=== PATIENT | female | born 1945 | race Caucasian/White ===

== ENCOUNTER 2020-12-14 18:04 | Inpatient (IN) ==
[2020-12-14] MEDS ORDERED: fentaNYL 100 MCG/2 ML VIAL IV ONE (18:29)
--- NOTE | 2020-12-14 18:45 | Emergency Department Note ---
Lower Extremity Injury HPI General Chief Complaint: Extremity Injury, Lower Stated Complaint: Fell @ home & broke right hip Time Seen by Provider: 12/14/20 18:21 Source: EMS and RN notes reviewed Mode of arrival: EMS History of Present Illness HPI Narrative: This is a 75-year-old female resident of [place] who slipped on a concrete step earlier today landing on her left hip and left elbow. She did not hit her head. She was seen in the ER at [facility] and diagnosed with a left nondisplaced intertrochanteric hip fracture. She has been transferred here under the care of Dr. Salinas for surgical intervention. Patient is on Eliquis for chronic atrial fibrillation, last dose was this morning at 4 AM. She has a history of HFpEF 60% with moderate to severe mitral insufficiency status post MitraClip [address] Mejias at [facility]. The patient appears euvolemic today and reports no edema or shortness of breath. Laboratory data from her work-up in [place] is unremarkable except for a platelet count of 123,000. Related Data Home Medications Medication Instructions Recorded Confirmed alendronate 70 mg PO WEEKLY 12/14/20 12/14/20 apixaban [Eliquis] 5 mg PO BID 12/14/20 12/14/20 atorvastatin 20 mg PO QHS 12/14/20 12/14/20 calcium carbonate-vitamin D3 1 tab PO DAILY 12/14/20 12/14/20 diltiazem HCl PO 12/14/20 12/14/20 metoprolol tartrate PO 12/14/20 12/14/20 Allergies Allergy/AdvReac Type Severity Reaction Status Date / Time No Known Drug Allergies Allergy Unverified 12/14/20 18:20 Review of Systems ROS ROS Narrative: Narrative: All systems ED: reviewed and negative except as stated. PFSH Narrative Patient History Narrative: Narrative: Medical/Surgical/Family History All Active Problems Intertrochanteric fracture of left hip (Acute) Social History Smoking Status: Former smoker Exam Narrative Narrative: General: AOx3, NAD, nontoxic appearing. Pleasant and conversant. HEENT: PERRLA, EOMI, normocephalic. Moist mucous membranes. Normal facies and normal dentition. Respiratory: Lungs clear to auscultation bilaterally. No respiratory distress. Unlabored breathing. Heart: Irregular rate and rhythm, no murmurs/clicks/rubs. Abdomen: Non-tender, Non distended, normal bowel tones. No organomegaly. Extremities: Warm and well perfused. No edema. DP 2+ bilaterally. No venous stasis. Left dorsal surface of the elbow with ecchymosis and small hematoma. No osseous deformities. Neuro: No focal deficits. Cranial nerves II-XII normal. Skin: Warm dry, no rashes or lesions, no cyanosis. Psych: Normal mood and affect Heme/Lymph: No abnormal bruising Course Vital Signs Vital signs: Vital Signs Temperature 97.6 F 12/14/20 18:07 Pulse Rate 80 12/14/20 18:07 Respiratory Rate 18 12/14/20 18:07 Blood Pressure 152/96 12/14/20 18:07 Pulse Oximetry (%) 96 12/14/20 18:07 Temperature 97.6 F 12/14/20 18:07 Pulse Rate 87 12/14/20 18:47 Respiratory Rate 12 12/14/20 18:31 Blood Pressure 138/73 12/14/20 18:47 Pulse Oximetry (%) 95 12/14/20 18:47 [facility] MDM Narrative Medical decision making narrative: Left nondisplaced intertrochanteric hip fracture Atrial fibrillation on chronic Eliquis Status post mitral clip for severe mitral regurgitation with [facility] Thrombocytopenia Dr. Salinas has accepted the patient and will plan on surgical repair tomorrow given the fact that she is on Eliquis. Currently she is hemodynamically stable. Given her other medical comorbidities, the hospitalist has been consulted. She will be admitted to the MedSurg unit. 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) Follow up with: Luis Eduardo Sahni DO [Primary Care Provider] - Prescriptions: No Action calcium carbonate-vitamin D3 1 tab PO DAILY RF: 0 diltiazem HCl 240 mg capsule,extended release 24hr 240 mg PO DAILY RF: 0 Eliquis 5 mg tablet 5 mg PO BID RF: 0 atorvastatin 20 mg tablet 20 mg PO QHS RF: 0 alendronate 70 mg tablet 70 mg PO WEEKLY RF: 0 metoprolol tartrate 50 mg tablet 50 mg PO BID RF: 0
--- NOTE | 2020-12-14 19:13 | Internal Med History&Physical ---
HPI History of Present Illness Patient information: Note initiated : 12/14/20 at 7:10 pm Service Date, if different from initiated Date: [] Patient: Uday Caballero a 75 y/o F admitted on for Fell @ home & broke right hip. Chief Complaint: [] History of present illness: Ms. Caballero is a 75 year old F Presents to the hospital from [facility] after a fall on her left side resulting in a hip fracture. She tripped on a step. Did not hit her head. No chest pain shortness of breath. She does have a history of atrial fibrillation and is on diltiazem and apixaban and a beta-chi. She did have a mitral valve procedure for mitral insufficiency. Dr. Salinas was contacted for orthopedic surgery. Review of Systems: Pertinent positives as above. Denies headache/fever/chills/nausea/vomiting/chest or abdominal pain/cough/dyspnea/diarrhea. Remaining 10 point review of system reviewed negative. PFSH PFSH All Active Problems Intertrochanteric fracture of left hip (Acute) MEDS/ALLERGIES Home Medications and Allergies Home Medications Medication Instructions Recorded Confirmed Type alendronate 70 mg PO WEEKLY 12/14/20 12/14/20 History apixaban [Eliquis] 5 mg PO BID 12/14/20 12/14/20 History atorvastatin 20 mg PO QHS 12/14/20 12/14/20 History calcium carbonate-vitamin D3 1 tab PO DAILY 12/14/20 12/14/20 History diltiazem HCl 240 mg PO DAILY 12/14/20 12/14/20 History metoprolol tartrate 50 mg PO BID 12/14/20 12/14/20 History Allergies Allergy/AdvReac Type Severity Reaction Status Date / Time No Known Drug Allergies Allergy Unverified 12/14/20 18:20 EXAM Constitutional Vitals: Temp Pulse Resp BP Pulse Ox 97.6 F 87 12 138/73 95 12/14/20 18:07 12/14/20 18:47 12/14/20 18:31 12/14/20 18:47 12/14/20 18:47 Exam: General: Alert, Awake, No acute Distress Eyes/N/T: EOMI, PERRL, Head/Neck: neck supple, normocephalic atraumatic CV: irreg irreg, No murmurs, normal s1/s2 Pulm: Clear b/l, no wheezing/rhonchi/rales Abd: soft, nontender, +BS x4 Ext: no clubbing/cyanosis/edema, left extremity shortened externally rotated. Neuro: Alert, no focal deficits, moves all extremities, CN 2-12 grossly intact, sensations intact b/l upper/lower Skin: warm/dry A/P Narrative A/P Narrative: A: *Left hip fracture: *A. fib: On diltiazem/metoprolol/apixaban *?h/o diastolic CHF, EF 60% *pending lab work P: -Dr. Salinas orthopedic surgery -Continue CCB/BB -Hold Eliquis for surgery and restart after - -PT/OT -ppx: SCDs and postop with Eliquis Full code Time Spent With Patient Time: Total time spent is greater than 50% in coordination of care (as documented) at patient's floor/unit and/or counseling patient:
--- NOTE | 2020-12-14 20:06 | History and Physical Report ---
DATE OF ADMISSION: 12/14/2020 IDENTIFICATION: Ms. Caballero is a 75-year-old female. CHIEF COMPLAINT: Left intertrochanteric hip fracture. HISTORY: Ms. Caballero was in [place]. She was outside, sustained a nonsyncopal fall. She had immediate hip pain. Was unable to bear weight. She was seen in Emergency Room at [facility] and radiographs had demonstrated a fracture of the left hip intertrochanteric region. She has been transferred for further evaluation and management. PAST MEDICAL HISTORY: Significant for atrial fibrillation, history of mitral valve insufficiency with a recent valvular procedure just several weeks ago, history of hypertension, she is anticoagulated, history of past smoker. REVIEW OF SYSTEMS: She has really been relatively healthy recently with negative 10-point review of systems. MEDICATIONS: 1. Fosamax. 2. Eliquis. 3. Atorvastatin. 4. Diltiazem. 5. Metoprolol. ALLERGIES: NONE. PHYSICAL EXAMINATION: GENERAL: She is awake and alert. She is generally resting comfortably. HEAD: Normocephalic, atraumatic. EYES: PERRLA. Conjunctivae clear. ENT: Within normal limits. NECK: Supple without pain on range of motion. HEART: Irregularly irregular. LUNGS: Clear. ABDOMEN: Benign. EXTREMITIES: Her left lower extremity is carefully positioned. There is pain with any range of motion. She does not have significant shortening or deformity. She is without neurovascular deficit. RADIOGRAPHS: Her radiographs demonstrate a fracture of the intertrochanteric region of left hip. IMPRESSION: Left hip fracture. We have discussed treatment options. We plan to proceed with a reduction and internal fixation because she is on Eliquis, I would like to delay this until tomorrow. The procedure, the surgical risks, complications, limitations have been discussed with the patient. She understands these well and wish to proceed. GDD:cori Job ID: [id number] Doc ID: [id number] Ken Salinas MD
[2020-12-14] MEDS ORDERED: METHOCARBAMOL 750 MG TABLET PO PRN (20:30)
[2020-12-14] MEDS ORDERED: morphine 4 MG/ML VIAL IV PRN (20:47)
[2020-12-14] MEDS ORDERED: MAGNESIUM SULFATE 2 GM/50 ML BAG IV PRN (20:47)
[2020-12-14] MEDS ORDERED: METOPROLOL TARTRATE 5 MG/5 ML VIAL IV PRN (20:47)
[2020-12-14] MEDS ORDERED: POTASSIUM CHLORIDE 20 MEQ TABLET PO PRN ×2 (20:47)
[2020-12-14] MEDS ORDERED: HYDROcodone/APAP 5/325MG TABLET PO PRN (20:47)
[2020-12-14] MEDS ORDERED: IPRATROPIUM/ALBUTEROL 3 ML AMPUL.NEB NEB PRN (20:47)
[2020-12-14] MEDS ORDERED: POTASSIUM CHLORIDE 40 MEQ in DEXTROSE 5% IN WATER 500 ML IV PRN (20:47)
[2020-12-14] MEDS ORDERED: POLYETHYLENE GLYCOL 3350 17 GM PACKET PO PRN (20:47)
[2020-12-14] MEDS ORDERED: SENNOSIDES 1 TABLET PO PRN (20:47)
[2020-12-14] MEDS ORDERED: ONDANSETRON 4 MG/2 ML VIAL IV PRN (20:47)
[2020-12-14] MEDS ORDERED: ACETAMINOPHEN 325 MG TABLET PO PRN (20:47)
[2020-12-14] MEDS: 0.9 % SODIUM CHLORIDE 10 ML SYRINGE IV SCH (21:13)
[2020-12-14] MEDS: 0.9 % SODIUM CHLORIDE 1,000 ML IV SCH (21:13)
[2020-12-14] MEDS: METOPROLOL TARTRATE 50 MG TABLET PO SCH (21:13)
[2020-12-14] MEDS: DOCUSATE SODIUM 100 MG CAPSULE PO SCH (21:13)
[2020-12-14] MEDS: ATORVASTATIN 20 MG TABLET PO SCH (21:13)
[2020-12-14 23:03] LABS: Appearance,Urine CLEAR (Clear); Bacteria,Urine MANY /hpf (0); Bilirubin,Urine Negative (Negative); Color,Urine STRAW; Culture Indicated,Urine Yes; Glucose,Urine (UA) Negative (Negative); Ketones,Urine 20 mg/dL (Negative); Leukocyte Esterase,Urine Negative /ug (Negative); Nitrate,Urine Negative (Negative); Protein,Urine Negative (Negative); Urine Blood 0.03 mg/dL (Negative); Urine RBC 6 /hpf (0-3); Urine Squamous Epithelial Cell 0 /hpf (0-4); Urine WBC 2 /hpf (0-4); Urobilinogen,Urine Negative
[2020-12-15] MEDS ORDERED: MAGNESIUM SULFATE 8.12 MEQ in DEXTROSE 5% IN WATER 50 ML IV ONE (00:14)
[2020-12-15] MEDS: 0.9 % SODIUM CHLORIDE 1,000 ML IV SCH (00:24)
[2020-12-15] MEDS: 0.9 % SODIUM CHLORIDE 10 ML SYRINGE IV SCH ×5 (06:12→21:18)
[2020-12-15 06:28] LABS: Basophils # (Auto) 0.06 K/mcL (0.00-0.20); Basophils % (Auto) 1.1 % (0.0-2.0); Eosinophils # (Auto) 0.05 K/mcL (0.00-0.70); Eosinophils % (Auto) 0.9 % (0.0-7.0); Hematocrit 33.6 % (36.0-48.0); Hemoglobin 10.8 g/dL (12.0-15.0); Lymphocytes # (Auto) 0.73 K/mcL (1.50-4.80); Lymphocytes % (Auto) 13.2 % (15.0-49.0); Mean Cell Volume 88.9 fL (80.0-100.0); Mean Corpuscular HGB Conc 32.1 g/dL (31.0-36.0); Mean Platelet Volume 11.1 fL (7.4-10.4); Monocytes # (Auto) 0.57 K/mcL (0.10-0.90); Monocytes % (Auto) 10.3 % (1.0-12.0); Neutrophils % (Auto) 74.5 % (38.0-78.0); Platelet Count 123 K/mcL (140-440); RBC 3.78 M/mcL (4.00-5.20); Red Cell Distribution Width 14.3 % (11.5-14.5); WBC 5.5 K/mcL (4.5-11.0)
[2020-12-15 06:47] LABS: ALT/SGPT 31 U/L (<40); AST/SGOT 27 U/L (<32); Albumin 3.7 gm/dL (3.2-5.2); Albumin/Globulin Ratio 1.4 (1.0-2.3); Alkaline Phosphatase 117 U/L (39-117); Bilirubin,Direct 0.4 mg/dL (<0.3); Bilirubin,Total 1.2 mg/dL (0.1-1.0); Blood Urea Nitrogen 13 mg/dL (8-23); Calcium 8.2 mg/dL (8.6-10.4); Carbon Dioxide 21 mmol/L (22-30); Chloride 101 mmol/L (96-108); Globulin 2.6 gm/dL (2.2-3.7); Glomerular Filtration Rate 93; Glucose 96 mg/dL (70-105); Lactate Dehydrogenase 304 U/L (135-225); Phosphorous 2.1 mg/dL (2.5-4.5); Triglycerides 71 mg/dL (<150); Uric Acid 5.5 mg/dL (2.5-8.0)
[2020-12-15 06:50] LABS: INR 1.3 (0.9-1.1); Prothrombin Time 16.4 sec (11.9-14.5)
[2020-12-15] MEDS: DILTIAZEM 240 MG CAP.XL.24H PO SCH ×2 (06:52→09:32)
[2020-12-15] MEDS ORDERED: LABETALOL 5 MG/ML ML IV PRN (07:47)
--- NOTE | 2020-12-15 07:49 | Internal Med Progress Note ---
SUBJECTIVE Subjective Patient information: Note initiated : 12/15/20 at 7:46 am Service Date, if different from initiated Date: [] Patient: Uday Caballero a 75 y/o F admitted on 12/14/20 for Fell @ home & broke right hip. Chief Complaint: [] Interval history: History of present illness: Ms. Caballero is a 75 year old F Presents to the hospital from [facility] after a fall on her left side resulting in a hip fracture. She tripped on a step. Did not hit her head. No chest pain shortness of breath. She does have a history of atrial fibrillation and is on diltiazem and apixaban and a beta-chi. She did have a mitral valve procedure for mitral insufficiency. Dr. Salinas was contacted for orthopedic surgery. 12/15 No overnight event or new complaints. Awaiting surgery. Patient states she is has a history of anemia and thrombocytopenia. Review of Systems: denies headache/fever/chills/nausea/vomiting/chest or abdominal pain/cough/dyspn ea/diarrhea. Otherwise see above. Constitutional Vitals: Vital Signs Temp Pulse Resp BP Pulse Ox 98.7 F 90 18 165/100 95 12/15/20 03:41 12/15/20 03:41 12/15/20 03:41 12/15/20 03:41 12/15/20 03:41 Period Temp Pulse Resp BP Sys/Winters Pulse Ox Last 24 Hr 97.6 F-98.7 F 64-95 12-22 138-171/73-102 92-97 Intake and Output 12/14/20 12/15/20 12/15/20 21:59 05:59 13:59 Intake Total 150 Output Total 1550 Balance -1400 Weight 52.707 kg 52.707 kg Intake & Output: Intake & Output 12/14/20 12/15/20 12/15/20 21:59 05:59 13:59 Intake Total 150 Output Total 1550 Balance -1400 Weight 52.707 kg 52.707 kg Intake: Oral 150 Output: Urine Catheter Amount 1550 Other: Urine Appearance Clear Cloudy Uretheral (Lance) Clear Urine Color Bright Yellow Bright Yellow Uretheral (Lance) Bright Yellow Urine Odor Normal Strong Uretheral (Lance) Normal Exam: General: Alert, Awake, No acute Distress Eyes/N/T: EOMI, Head/Neck: neck supple, CV: irreg irreg, No murmurs, Pulm: Clear b/l, no wheezing/rhonchi/rales Abd: soft, nontender, +BS x4 Ext: no clubbing/cyanosis/edema, left extremity shortened externally rotated. Neuro: Alert, no focal deficits, moves all extremities, Skin: warm/dry OBJ DATA Labs CBC & Chem 7: 12/15/20 05:30 12/15/20 05:29 Labs: Abnormal Lab Results 12/15/20 12/15/20 12/15/20 05:30 05:29 05:29 RBC 3.78 L Hgb 10.8 L Hct 33.6 L Plt Count 123 L MPV 11.1 H Lymph % (Auto) 13.2 L Lymph # (Auto) 0.73 L PT 16.4 H INR 1.3 H Carbon Dioxide 21 L Creatinine 0.5 L Calcium 8.2 L Phosphorus 2.1 L Total Bilirubin 1.2 H Direct Bilirubin 0.4 H GGT 98 H Lactate Dehydrogenase 304 H Urine Ketones Urine RBC Urine Bacteria 12/14/20 21:58 RBC Hgb Hct Plt Count MPV Lymph % (Auto) Lymph # (Auto) PT INR Carbon Dioxide Creatinine Calcium Phosphorus Total Bilirubin Direct Bilirubin GGT Lactate Dehydrogenase Urine Ketones 20 A Urine RBC 6 H Urine Bacteria Many A Meds: Medications Acetaminophen (Acetaminophen 325 Mg Tablet) 650 mg PO Q6HP PRN PRN Reason: PAIN/FEVER > 101 Last Admin: 12/15/20 07:15 Dose: 650 mg Documented by: Hydrocodone Bitart/Acetaminophen (Hydrocodone/Apap 7.5/325mg Tablet) 1 - 2 tab PO Q4-6HP PRN; Protocol PRN Reason: Per Pain Protocol Albuterol/Ipratropium (Ipratropium/Albuterol 3 Ml Ampul.Neb) 3 ml NEB Q4HP PRN PRN Reason: Shortness Of Breath Alendronate Sodium (Alendronate Sodium 70 Mg Tablet) 70 mg PO Weiner@0730 [facility] Atorvastatin Calcium (Atorvastatin 20 Mg Tablet) 20 mg PO QHS [facility] Last Admin: 12/14/20 21:13 Dose: 20 mg Documented by: Diltiazem HCl (Diltiazem 240 Mg Cap.Xl.24h) 240 mg PO DAILY [facility] Last Admin: 12/15/20 06:52 Dose: 240 mg Documented by: Docusate Sodium (Docusate Sodium 100 Mg Capsule) 100 mg PO BID [facility] Last Admin: 12/14/20 21:13 Dose: 100 mg Documented by: Potassium Chloride 40 meq/ (Dextrose) 520 mls @ 130 mls/hr IV UD PRN PRN Reason: Potassium < 3 Magnesium Sulfate (Magnesium Sulfate) 2 gm in 50 mls @ 50 mls/hr IV UD PRN PRN Reason: Magnesium </= 1.6 Sodium Chloride (Sodium Chloride 0.9%) 1,000 mls @ 75 mls/hr IV .[id number] [facility] Stop: 12/15/20 13:14 Last Admin: 12/15/20 00:24 Dose: Not Given Documented by: Methocarbamol (Methocarbamol 750 Mg Tablet) 750 mg PO Q6HP PRN PRN Reason: pain/spasm Metoprolol Tartrate (Metoprolol Tartrate 50 Mg Tablet) 50 mg PO BID [facility] Last Admin: 12/14/20 21:13 Dose: 50 mg Documented by: Metoprolol Tartrate (Metoprolol Tartrate 5 Mg/5 Ml Vial) 5 mg IV Q2HP PRN PRN Reason: Tachyarrhythmias HR>110 Morphine Sulfate (Morphine 4 Mg/Ml Vial) 0 mg IV Q3HP PRN PRN Reason: Pain Ondansetron HCl (Ondansetron 4 Mg/2 Ml Vial) 4 mg IV Q4HP PRN PRN Reason: Nausea And Vomiting Polyethylene Glycol (Polyethylene Glycol 3350 17 Gm Packet) 17 gm PO DAILYP PRN PRN Reason: Constipation Potassium Chloride (Potassium Chloride 20 Meq Tablet) 40 meq PO UD PRN PRN Reason: Potssium is 3-3.5 Potassium Chloride (Potassium Chloride 20 Meq Tablet) 40 meq PO UD PRN PRN Reason: Potassium < 3 Scopolamine (Scopolamine 1 Patch Patch) 1 patch TOPICAL PREOP PRN PRN Reason: Nausea And Vomiting Stop: 12/15/20 19:00 Senna (Sennosides 1 Tablet) 2 tab PO DAILYP PRN PRN Reason: Constipation Sodium Chloride (0.9 % Sodium Chloride 10 Ml Syringe) 10 ml IV Q8 [facility] Last Admin: 12/15/20 06:12 Dose: Not Given Documented by: A/P Narrative A/P Narrative: A: *Left hip fracture: *A. fib: On diltiazem/metoprolol/apixaban *?h/o diastolic CHF, EF 60% *Anemia, chronic: *Thrombocytopenia, chronic: *Hypophos: *Daily beer x4 P: -Dr. Salinas orthopedic surgery -Continue CCB/BB -Hold Eliquis for surgery and restart after -yaw JAIMES with dinner -PT/OT -ppx: SCDs and postop with Eliquis Full code Time Spent With Patient Time: Total time spent is greater than 50% in coordination of care (as documented) at patient's floor/unit and/or counseling patient: QUALITY Stroke Symptom Onset Unknown: No VTE Deep Vein Thrombosis/Pulmonary Embolism Present on Admission: No
[2020-12-15] MEDS ORDERED: chlordiazePOXIDE 25 MG CAPSULE PO PRN (07:55)
[2020-12-15] MEDS ORDERED: cloNIDine HCL 0.1 MG TABLET PO PRN (07:55)
[2020-12-15] MEDS ORDERED: LORazepam 2 MG/ML VIAL IV PRN (07:55)
[2020-12-15] MEDS ORDERED: POTASSIUM PHOSPHATE 40 MEQ in DEXTROSE 5% IN WATER 500 ML IV ONE (08:00)
[2020-12-15] MEDS: THIAMINE 100 MG in 0.9 % SODIUM CHLORIDE 50 ML IV SCH (08:21)
[2020-12-15] MEDS: DOCUSATE SODIUM 100 MG CAPSULE PO SCH ×2 (09:32→21:02)
[2020-12-15] MEDS: METOPROLOL TARTRATE 50 MG TABLET PO SCH ×2 (10:36→21:02)
[2020-12-15] MEDS: FOLIC ACID 1 MG TABLET PO SCH (10:36)
[2020-12-15] MEDS ORDERED: SCOPOLAMINE 1 PATCH PATCH TOPICAL PRN (13:00)
[2020-12-15] MEDS ORDERED: 0.9 % SODIUM CHLORIDE 250 ML IV SCH (14:00)
[2020-12-15] MEDS ORDERED: ceFAZolin 2 GM in DEXTROSE 5% IN WATER 50 ML IV SCH (15:45)
[2020-12-15] MEDS ORDERED: LIDOCAINE HCL/PF 100 MG/5 ML SYRINGE IV ONE (15:51)
[2020-12-15] MEDS ORDERED: MAGNESIUM SULFATE 2 GM/50 ML BAG IV ONE (15:51)
[2020-12-15] MEDS ORDERED: GLYCOPYRROLATE 0.2 MG/ML VIAL IV ONE (15:51)
[2020-12-15] MEDS ORDERED: ESMOLOL 100 MG/10 ML VIAL IV ONE (15:51)
[2020-12-15] MEDS ORDERED: DEXAMETHASONE 10 MG/ML VIAL ONE (15:51)
[2020-12-15] MEDS ORDERED: PROPOFOL 200 MG/20 ML VIAL IV ONE (15:51)
[2020-12-15] MEDS ORDERED: METOPROLOL TARTRATE 5 MG/5 ML VIAL IV ONE (15:51)
[2020-12-15] MEDS ORDERED: TRANEXAMIC ACID 1,000 MG/10 ML VIAL IV ONE (15:51)
[2020-12-15] MEDS ORDERED: fentaNYL 100 MCG/2 ML VIAL IV ONE (15:51)
[2020-12-15] MEDS ORDERED: ONDANSETRON 4 MG/2 ML VIAL ONE (15:51)
[2020-12-15] MEDS ORDERED: PHENYLephrine 1 MG/10 ML SYRINGE (ANEST) ONE (15:51)
[2020-12-15] MEDS ORDERED: KETAMINE 50 MG/ML Syringe (ANEST) ONE (15:51)
[2020-12-15] MEDS ORDERED: ATROPINE SULFATE 0.4 MG/ML VIAL IV PRN (16:36)
[2020-12-15] MEDS ORDERED: fentaNYL 100 MCG/2 ML VIAL IV PRN (16:36)
[2020-12-15] MEDS ORDERED: HYDROmorphone 0.5 MG/0.5 ML SYRINGE IV PRN (16:36)
[2020-12-15] MEDS ORDERED: METOPROLOL TARTRATE 5 MG/5 ML VIAL IV PRN (16:36)
[2020-12-15] MEDS ORDERED: IPRATROPIUM/ALBUTEROL 3 ML AMPUL.NEB NEB PRN (16:36)
[2020-12-15] MEDS ORDERED: ACETAMINOPHEN 1,000 MG/100 ML BAG IV ONE (16:36)
[2020-12-15] MEDS ORDERED: METHOCARBAMOL 1,000 MG/10 ML VIAL IV PRN (16:36)
[2020-12-15] MEDS ORDERED: MEPERIDINE 25 MG/ML VIAL IV PRN (16:36)
[2020-12-15] MEDS ORDERED: PROMETHAZINE 25 MG/ML VIAL IV PRN (16:36)
[2020-12-15] MEDS ORDERED: ONDANSETRON 4 MG/2 ML VIAL IV PRN (16:36)
[2020-12-15] MEDS ORDERED: FLUMAZENIL 0.1 MG/ML ML IV PRN (16:36)
[2020-12-15] MEDS ORDERED: NALOXONE HCL 0.4 MG/ML VIAL IV PRN (16:36)
[2020-12-15] MEDS ORDERED: ePHEDrine 50 MG/ML AMPUL IV PRN (16:36)
[2020-12-15] MEDS ORDERED: diphenhydrAMINE 50 MG/ML VIAL IV PRN (16:36)
--- NOTE | 2020-12-15 16:41 | Brief Operative Note ---
Brief Operative Note Date of procedure: 12/15/20 Pre-op diagnosis: Left hip fracture Post-op diagnosis: same Procedure: imhs Grafts/Implants: Yes Anesthesia: GETA Complications: none Surgeon: Ken Salinas Ophthalmic Technician Apprentice: Sofia Concepcion Estimated blood loss (cc): 100 Specimens Removed/Pathology: none sent Condition: stable Disposition: PACU
[2020-12-15] MEDS ORDERED: LACTATED RINGERS 1,000 ML IV SCH (16:45)
--- NOTE | 2020-12-15 17:39 | XRay Report ---
INDICATION: orif left hip with gamma nail TECHNIQUE: Intraoperative fluoroscopy and spot films utilized. Open reduction and internal fixation of left hip fracture with gamma nail configuration. 0.3 minutes fluoroscopy and 2.82 mCi exposure utilized. IMPRESSION: Intraoperative fluoroscopy and spot films Interpreted and Authenticated by: Virgil Hardin 12/15/20
[2020-12-15] MEDS: HYDROCODONE/APAP 7.5/325MG TABLET PO PRN (18:58)
[2020-12-15] MEDS: ATORVASTATIN 20 MG TABLET PO SCH (21:01)
[2020-12-15] MEDS: ceFAZolin 1 GM VIAL IV SCH (21:01)
[2020-12-16] MEDS: ceFAZolin 1 GM VIAL IV SCH ×3 (05:24→22:02)
[2020-12-16] MEDS: 0.9 % SODIUM CHLORIDE 10 ML SYRINGE IV SCH ×6 (05:55→23:40)
--- NOTE | 2020-12-16 06:05 | Orthopedic Progress Note ---
SUBJECTIVE Subjective Patient information: Note initiated : 12/16/20 at 6:04 am Service Date, if different from initiated Date: [] Patient: Uday Caballero 75 y/o F admitted on 12/14/20 for Fell @ home & broke right hip. Chief Complaint: [no new ortho issues ] Constitutional Vitals: Vital Signs Temp Pulse Resp BP Pulse Ox 98.4 F 80 16 123/82 95 12/16/20 05:26 12/16/20 05:26 12/16/20 05:26 12/16/20 05:26 12/16/20 05:26 Period Temp Pulse Resp BP Sys/Winters Pulse Ox Last 24 Hr 98.1 F-98.6 F 56-130 13-22 88-165/61-104 87-100 Intake and Output 12/15/20 12/16/20 12/16/20 21:59 05:59 13:59 Intake Total 1250 500 Output Total 1300 450 Balance -50 50 Weight 116 lb 3.2 oz Intake & Output: Intake & Output 12/15/20 12/16/20 12/16/20 21:59 05:59 13:59 Intake Total 1250 500 Output Total 1300 450 Balance -50 50 Weight 116 lb 3.2 oz Intake: IV 150 Ancef 2 gm In Dextrose 5% in 50 Water 50 ml @ 100 mls/hr IV PREOP [facility] Rx#:[id number] Oral 500 IV - Manual Only 1100 Output: Urine Catheter Amount 1150 450 Estimated Blood Loss 150 Other: Urine Appearance Clear Clear Uretheral (Lance) Clear Urine Color Pale Bright Yellow Uretheral (Lance) Bright Yellow OBJ DATA Labs CBC & Chem 7: 12/15/20 05:30 12/15/20 05:29 Labs: Abnormal Lab Results 12/15/20 12/15/20 12/15/20 05:30 05:29 05:29 RBC 3.78 L Hgb 10.8 L Hct 33.6 L Plt Count 123 L MPV 11.1 H Lymph % (Auto) 13.2 L Lymph # (Auto) 0.73 L PT 16.4 H INR 1.3 H Carbon Dioxide 21 L Creatinine 0.5 L Calcium 8.2 L Phosphorus 2.1 L Total Bilirubin 1.2 H Direct Bilirubin 0.4 H GGT 98 H Lactate Dehydrogenase 304 H Urine Ketones Urine RBC Urine Bacteria 12/14/20 21:58 RBC Hgb Hct Plt Count MPV Lymph % (Auto) Lymph # (Auto) PT INR Carbon Dioxide Creatinine Calcium Phosphorus Total Bilirubin Direct Bilirubin GGT Lactate Dehydrogenase Urine Ketones 20 A Urine RBC 6 H Urine Bacteria Many A Meds: Medications Acetaminophen (Acetaminophen 325 Mg Tablet) 650 mg PO Q6HP PRN PRN Reason: PAIN/FEVER > 101 Last Admin: 12/15/20 07:15 Dose: 650 mg Documented by: Hydrocodone Bitart/Acetaminophen (Hydrocodone/Apap 7.5/325mg Tablet) 1 - 2 tab PO Q4-6HP PRN; Protocol PRN Reason: Per Pain Protocol Last Admin: 12/15/20 18:58 Dose: 1 tab Documented by: Albuterol/Ipratropium (Ipratropium/Albuterol 3 Ml Ampul.Neb) 3 ml NEB Q4HP PRN PRN Reason: Shortness Of Breath Alendronate Sodium (Alendronate Sodium 70 Mg Tablet) 70 mg PO Weiner@0730 [facility] Atorvastatin Calcium (Atorvastatin 20 Mg Tablet) 20 mg PO QHS [facility] Last Admin: 12/15/20 21:01 Dose: 20 mg Documented by: Cefazolin Sodium (Cefazolin 1 Gm Vial) 1 gm IV Q8H [facility]; Protocol Last Admin: 12/16/20 05:24 Dose: 1 gm Documented by: Chlordiazepoxide HCl (Chlordiazepoxide 25 Mg Capsule) 25 mg PO Q4HP PRN PRN Reason: Alcohol Withdrawal Clonidine HCl (Clonidine Hcl 0.1 Mg Tablet) 0.1 mg PO Q4HP PRN PRN Reason: ALC Diltiazem HCl (Diltiazem 240 Mg Cap.Xl.24h) 240 mg PO DAILY [facility] Last Admin: 12/15/20 09:32 Dose: Not Given Documented by: Docusate Sodium (Docusate Sodium 100 Mg Capsule) 100 mg PO BID [facility] Last Admin: 12/15/20 21:02 Dose: 100 mg Documented by: Folic Acid (Folic Acid 1 Mg Tablet) 1 mg PO DAILY [facility] Last Admin: 12/15/20 10:36 Dose: Not Given Documented by: Potassium Chloride 40 meq/ (Dextrose) 520 mls @ 130 mls/hr IV UD PRN PRN Reason: Potassium < 3 Magnesium Sulfate (Magnesium Sulfate) 2 gm in 50 mls @ 50 mls/hr IV UD PRN PRN Reason: Magnesium </= 1.6 Thiamine HCl 100 mg/ Sodium (Chloride) 51 mls @ 50 mls/hr IV DAILY [facility] Last Infusion: 12/15/20 09:23 Dose: Infused Documented by: Labetalol HCl (Labetalol 5 Mg/Ml Ml) 0 mg IV Q2HP PRN PRN Reason: Hypertension Lorazepam (Lorazepam 2 Mg/Ml Vial) 0 mg IV Q4HP PRN; Protocol PRN Reason: Alcohol Withdrawal Methocarbamol (Methocarbamol 750 Mg Tablet) 750 mg PO Q6HP PRN PRN Reason: pain/spasm Last Admin: 12/16/20 01:21 Dose: 750 mg Documented by: Metoprolol Tartrate (Metoprolol Tartrate 50 Mg Tablet) 50 mg PO BID [facility] Last Admin: 12/15/20 21:02 Dose: 50 mg Documented by: Metoprolol Tartrate (Metoprolol Tartrate 5 Mg/5 Ml Vial) 5 mg IV Q2HP PRN PRN Reason: Tachyarrhythmias HR>110 Last Admin: 12/15/20 08:17 Dose: 5 mg Documented by: Morphine Sulfate (Morphine 4 Mg/Ml Vial) 0 mg IV Q3HP PRN PRN Reason: Pain Ondansetron HCl (Ondansetron 4 Mg/2 Ml Vial) 4 mg IV Q4HP PRN PRN Reason: Nausea And Vomiting Polyethylene Glycol (Polyethylene Glycol 3350 17 Gm Packet) 17 gm PO DAILYP PRN PRN Reason: Constipation Potassium Chloride (Potassium Chloride 20 Meq Tablet) 40 meq PO UD PRN PRN Reason: Potssium is 3-3.5 Potassium Chloride (Potassium Chloride 20 Meq Tablet) 40 meq PO UD PRN PRN Reason: Potassium < 3 Senna (Sennosides 1 Tablet) 2 tab PO DAILYP PRN PRN Reason: Constipation Sodium Chloride (0.9 % Sodium Chloride 10 Ml Syringe) 10 ml IV Q8 [facility] Last Admin: 12/16/20 05:55 Dose: Not Given Documented by: Sodium Chloride (0.9 % Sodium Chloride 10 Ml Syringe) 10 ml IV Q8 [facility] Last Admin: 12/16/20 05:56 Dose: Not Given Documented by: A/P Narrative A/P Narrative: sp ORIF, mobilize with PT Time Spent With Patient Time: Total time spent is greater than 50% in coordination of care (as documented) at patient's floor/unit and/or counseling patient:
[2020-12-16 07:05] LABS: Basophils # (Auto) 0.01 K/mcL (0.00-0.20); Basophils % (Auto) 0.2 % (0.0-2.0); Eosinophils # (Auto) 0 K/mcL (0.00-0.70); Eosinophils % (Auto) 0 % (0.0-7.0); Hematocrit 31.3 % (36.0-48.0); Hemoglobin 10.3 g/dL (12.0-15.0); Lymphocytes # (Auto) 0.53 K/mcL (1.50-4.80); Lymphocytes % (Auto) 11.1 % (15.0-49.0); Mean Cell Volume 86.9 fL (80.0-100.0); Mean Corpuscular HGB Conc 32.9 g/dL (31.0-36.0); Mean Platelet Volume 11.9 fL (7.4-10.4); Monocytes # (Auto) 0.42 K/mcL (0.10-0.90); Monocytes % (Auto) 8.8 % (1.0-12.0); Neutrophils % (Auto) 79.9 % (38.0-78.0); Platelet Count 113 K/mcL (140-440); Red Cell Distribution Width 14.2 % (11.5-14.5); WBC 4.8 K/mcL (4.5-11.0)
[2020-12-16 07:18] LABS: ALT/SGPT 20 U/L (<40); AST/SGOT 21 U/L (<32); Albumin 3.1 gm/dL (3.2-5.2); Albumin/Globulin Ratio 1.3 (1.0-2.3); Alkaline Phosphatase 93 U/L (39-117); Bilirubin,Direct 0.2 mg/dL (<0.3); Bilirubin,Total 0.6 mg/dL (0.1-1.0); Blood Urea Nitrogen 11 mg/dL (8-23); Calcium 7.7 mg/dL (8.6-10.4); Carbon Dioxide 25 mmol/L (22-30); Chloride 98 mmol/L (96-108); Globulin 2.4 gm/dL (2.2-3.7); Glomerular Filtration Rate 88; Glucose 142 mg/dL (70-105); Lactate Dehydrogenase 284 U/L (135-225); Phosphorous 2.9 mg/dL (2.5-4.5); Triglycerides 48 mg/dL (<150); Uric Acid 5.1 mg/dL (2.5-8.0)
[2020-12-16] MEDS: HYDROCODONE/APAP 7.5/325MG TABLET PO PRN (07:44)
--- NOTE | 2020-12-16 07:50 | Internal Med Progress Note ---
SUBJECTIVE Subjective Patient information: Note initiated : 12/16/20 at 7:48 am Service Date, if different from initiated Date: [] Patient: Uday Caballero a 75 y/o F admitted on 12/14/20 for Fell @ home & broke right hip. Chief Complaint: [] Interval history: History of present illness: Ms. Caballero is a 75 year old F Presents to the hospital from [facility] after a fall on her left side resulting in a hip fracture. She tripped on a step. Did not hit her head. No chest pain shortness of breath. She does have a history of atrial fibrillation and is on diltiazem and apixaban and a beta-chi. She did have a mitral valve procedure for mitral insufficiency. Dr. Salinas was contacted for orthopedic surgery. 12/15 No overnight event or new complaints. Awaiting surgery. Patient states she is has a history of anemia and thrombocytopenia. 12/16 Feeling well. No overnight event or new complaints. Review of Systems: denies headache/fever/chills/nausea/vomiting/chest or abdominal pain/cough/dyspnea/diarrhea. Otherwise see above. Constitutional Vitals: Vital Signs Temp Pulse Resp BP Pulse Ox 97.2 F 70 16 107/72 95 12/16/20 06:52 12/16/20 06:52 12/16/20 06:52 12/16/20 06:52 12/16/20 06:52 Period Temp Pulse Resp BP Sys/Winters Pulse Ox Last 24 Hr 97.2 F-98.6 F 56-130 13-22 88-165/61-104 87-100 Intake and Output 12/15/20 12/16/20 12/16/20 21:59 05:59 13:59 Intake Total 1250 500 Output Total 1300 450 Balance -50 50 Weight 52.707 kg Intake & Output: Intake & Output 12/15/20 12/16/20 12/16/20 21:59 05:59 13:59 Intake Total 1250 500 Output Total 1300 450 Balance -50 50 Weight 52.707 kg Intake: IV 150 Ancef 2 gm In Dextrose 5% in 50 Water 50 ml @ 100 mls/hr IV PREOP CATARINO Rx#:[id number] Oral 500 IV - Manual Only 1100 Output: Urine Catheter Amount 1150 450 Estimated Blood Loss 150 Other: Urine Appearance Clear Clear Uretheral (Lance) Clear Urine Color Pale Bright Yellow Uretheral (Lance) Bright Yellow Exam: General: Alert, Awake, No acute Distress Eyes/N/T: EOMI, Head/Neck: neck supple, CV: irreg irreg, No murmurs, Pulm: Clear b/l, no wheezing/rhonchi/rales Abd: soft, nontender, +BS x4 Ext: no clubbing/cyanosis/edema, left hip dressings Neuro: Alert, no focal deficits, moves all extremities, Skin: warm/dry OBJ DATA Labs CBC & Chem 7: 12/16/20 04:53 12/16/20 05:44 Labs: Abnormal Lab Results 12/16/20 12/16/20 12/15/20 05:44 04:53 05:30 RBC 3.60 L 3.78 L Hgb 10.3 L 10.8 L Hct 31.3 L 33.6 L Plt Count 113 L 123 L MPV 11.9 H 11.1 H Neut % (Auto) 79.9 H Lymph % (Auto) 11.1 L 13.2 L Lymph # (Auto) 0.53 L 0.73 L PT INR Carbon Dioxide Creatinine Glucose 142 H Calcium 7.7 L Phosphorus Total Bilirubin Direct Bilirubin GGT 81 H Lactate Dehydrogenase 284 H Total Protein 5.5 L Albumin 3.1 L Urine Ketones Urine RBC Urine Bacteria 12/15/20 12/15/20 12/14/20 05:29 05:29 21:58 RBC Hgb Hct Plt Count MPV Neut % (Auto) Lymph % (Auto) Lymph # (Auto) PT 16.4 H INR 1.3 H Carbon Dioxide 21 L Creatinine 0.5 L Glucose Calcium 8.2 L Phosphorus 2.1 L Total Bilirubin 1.2 H Direct Bilirubin 0.4 H GGT 98 H Lactate Dehydrogenase 304 H Total Protein Albumin Urine Ketones 20 A Urine RBC 6 H Urine Bacteria Many A Meds: Medications Acetaminophen (Acetaminophen 325 Mg Tablet) 650 mg PO Q6HP PRN PRN Reason: PAIN/FEVER > 101 Last Admin: 12/15/20 07:15 Dose: 650 mg Documented by: Hydrocodone Bitart/Acetaminophen (Hydrocodone/Apap 7.5/325mg Tablet) 1 - 2 tab PO Q4-6HP PRN; Protocol PRN Reason: Per Pain Protocol Last Admin: 12/16/20 07:44 Dose: 1 tab Documented by: Albuterol/Ipratropium (Ipratropium/Albuterol 3 Ml Ampul.Neb) 3 ml NEB Q4HP PRN PRN Reason: Shortness Of Breath Alendronate Sodium (Alendronate Sodium 70 Mg Tablet) 70 mg PO Weiner@0730 [facility] Atorvastatin Calcium (Atorvastatin 20 Mg Tablet) 20 mg PO QHS [facility] Last Admin: 12/15/20 21:01 Dose: 20 mg Documented by: Cefazolin Sodium (Cefazolin 1 Gm Vial) 1 gm IV Q8H [facility]; Protocol Last Admin: 12/16/20 05:24 Dose: 1 gm Documented by: Chlordiazepoxide HCl (Chlordiazepoxide 25 Mg Capsule) 25 mg PO Q4HP PRN PRN Reason: Alcohol Withdrawal Clonidine HCl (Clonidine Hcl 0.1 Mg Tablet) 0.1 mg PO Q4HP PRN PRN Reason: ALC Diltiazem HCl (Diltiazem 240 Mg Cap.Xl.24h) 240 mg PO DAILY [facility] Last Admin: 12/15/20 09:32 Dose: Not Given Documented by: Docusate Sodium (Docusate Sodium 100 Mg Capsule) 100 mg PO BID [facility] Last Admin: 12/15/20 21:02 Dose: 100 mg Documented by: Folic Acid (Folic Acid 1 Mg Tablet) 1 mg PO DAILY [facility] Last Admin: 12/15/20 10:36 Dose: Not Given Documented by: Potassium Chloride 40 meq/ (Dextrose) 520 mls @ 130 mls/hr IV UD PRN PRN Reason: Potassium < 3 Magnesium Sulfate (Magnesium Sulfate) 2 gm in 50 mls @ 50 mls/hr IV UD PRN PRN Reason: Magnesium </= 1.6 Thiamine HCl 100 mg/ Sodium (Chloride) 51 mls @ 50 mls/hr IV DAILY [facility] Last Infusion: 12/15/20 09:23 Dose: Infused Documented by: Labetalol HCl (Labetalol 5 Mg/Ml Ml) 0 mg IV Q2HP PRN PRN Reason: Hypertension Lorazepam (Lorazepam 2 Mg/Ml Vial) 0 mg IV Q4HP PRN; Protocol PRN Reason: Alcohol Withdrawal Methocarbamol (Methocarbamol 750 Mg Tablet) 750 mg PO Q6HP PRN PRN Reason: pain/spasm Last Admin: 12/16/20 01:21 Dose: 750 mg Documented by: Metoprolol Tartrate (Metoprolol Tartrate 50 Mg Tablet) 50 mg PO BID [facility] Last Admin: 12/15/20 21:02 Dose: 50 mg Documented by: Metoprolol Tartrate (Metoprolol Tartrate 5 Mg/5 Ml Vial) 5 mg IV Q2HP PRN PRN Reason: Tachyarrhythmias HR>110 Last Admin: 12/15/20 08:17 Dose: 5 mg Documented by: Morphine Sulfate (Morphine 4 Mg/Ml Vial) 0 mg IV Q3HP PRN PRN Reason: Pain Ondansetron HCl (Ondansetron 4 Mg/2 Ml Vial) 4 mg IV Q4HP PRN PRN Reason: Nausea And Vomiting Polyethylene Glycol (Polyethylene Glycol 3350 17 Gm Packet) 17 gm PO DAILYP PRN PRN Reason: Constipation Potassium Chloride (Potassium Chloride 20 Meq Tablet) 40 meq PO UD PRN PRN Reason: Potssium is 3-3.5 Potassium Chloride (Potassium Chloride 20 Meq Tablet) 40 meq PO UD PRN PRN Reason: Potassium < 3 Senna (Sennosides 1 Tablet) 2 tab PO DAILYP PRN PRN Reason: Constipation Sodium Chloride (0.9 % Sodium Chloride 10 Ml Syringe) 10 ml IV Q8 [facility] Last Admin: 12/16/20 05:55 Dose: Not Given Documented by: Sodium Chloride (0.9 % Sodium Chloride 10 Ml Syringe) 10 ml IV Q8 [facility] Last Admin: 12/16/20 05:56 Dose: Not Given Documented by: A/P Narrative A/P Narrative: A: *Left hip fracture: s/p ORIF (12/15) *A. fib: On diltiazem/metoprolol/apixaban *?h/o diastolic CHF, EF 60% *Anemia, chronic: *Thrombocytopenia, chronic: *Hypophos: resolved *Daily beer x4 P: -Dr. Salinas orthopedic surgery -Continue CCB/BB -CIWA, beer with dinner -PT/OT -ppx: SCDs preop, start Eliquis Full code Time Spent With Patient Time: Total time spent is greater than 50% in coordination of care (as documented) at patient's floor/unit and/or counseling patient: QUALITY Stroke Symptom Onset Unknown: No VTE Deep Vein Thrombosis/Pulmonary Embolism Present on Admission: No
[2020-12-16] MEDS: FOLIC ACID 1 MG TABLET PO SCH (08:29)
[2020-12-16] MEDS: THIAMINE 100 MG in 0.9 % SODIUM CHLORIDE 50 ML IV SCH (08:29)
[2020-12-16] MEDS: DILTIAZEM 240 MG CAP.XL.24H PO SCH (08:29)
[2020-12-16] MEDS: DOCUSATE SODIUM 100 MG CAPSULE PO SCH ×2 (08:29→22:02)
[2020-12-16] MEDS: METOPROLOL TARTRATE 50 MG TABLET PO SCH ×2 (08:29→22:02)
[2020-12-16] MEDS ORDERED: THIAMINE 100 MG/ML VIAL ONE (08:29)
--- NOTE | 2020-12-16 11:24 | Discharge Summary ---
Discharge Provider Provider Patient information: Note initiated : 12/16/20 at 11:22 am Service Date, if different from initiated Date: [] Patient: Uday Caballero 75 y/o F admitted on 12/14/20 for Fell @ home & broke right hip. Chief Complaint: [] Date of admission: 12/14/20 20:04 Discharge date: 12/17/20 Primary care physician: Luis Eduardo Sahni DO Consults: 12/14/20 Consult to Physician [CONS] Stat Comment: Consulting Provider: Saurabh Mims Reason For Exam: Physician to Consult 12/14/20 18:58 Consult to Physician [CONS] Stat Comment: Consulting Provider: Ken Salinas Reason For Exam: Physician to Consult 12/14/20 20:47 Consult to Physician [CONS] Routine Comment: Consulting Provider: Ken Salinas Reason For Exam: Physician to Consult Discharge Meds Discharge Medications Home Medications Eliquis 5 mg PO BID 12/14/20 [History Confirmed 12/14/20 Last Taken 12/14/20 04:00] alendronate 70 mg PO WEEKLY 12/14/20 [History Confirmed 12/14/20 Last Taken 12/11/20 05:00] atorvastatin 20 mg PO QHS 12/14/20 [History Confirmed 12/14/20 Last Taken 12/13/20 20:00] calcium carbonate-vitamin D3 1 tab PO DAILY 12/14/20 [History Confirmed 12/14/20 Last Taken 12/13/20 09:00] diltiazem HCl 240 mg PO DAILY 12/14/20 [History Confirmed 12/14/20 Last Taken 12/14/20 04:00] metoprolol tartrate 50 mg PO BID 12/14/20 [History Confirmed 12/14/20 Last Taken 12/14/20 10:00] docusate sodium [DOK] 100 mg PO BID #60 cap 12/17/20 [Rx Last Taken Unknown] hydrocodone-acetaminophen 1 - 2 tab PO Q4-6HP PRN #60 tab 12/17/20 [Rx Last Taken Unknown] levofloxacin 750 mg PO Q24H #2 tab 12/17/20 [Rx Last Taken Unknown] methocarbamol 750 mg PO Q6HP PRN #20 tab 12/17/20 [Rx Last Taken Unknown] COURSE Hospital Course Hospital course: Interval history: History of present illness: Ms. Caballero is a 75 year old F Presents to the hospital from [facility] after a fall on her left side resulting in a hip fracture. She tripped on a step. Did not hit her head. No chest pain shortness of breath. She does have a history of atrial fibrillation and is on diltiazem and apixaban and a beta-chi. She did have a mitral valve procedure for mitral insufficiency. Dr. Salinas was contacted for orthopedic surgery. 12/15 No overnight event or new complaints. Awaiting surgery. Patient states she is has a history of anemia and thrombocytopenia. 12/16 Feeling well. No overnight event or new complaints. 12/17 Continues to feel well. No overnight event or new complaints. Urine culture with gram-negative bacillus. A/P Narrative: *Left hip fracture: s/p ORIF (12/15) *A. fib: On diltiazem/metoprolol/apixaban *?h/o diastolic CHF, EF 60% *Anemia, chronic: *Thrombocytopenia, chronic: *Hypophos: resolved *alcohol use *UTI (GNB): Discharge diagnosis: Left hip fracture Secondary discharge diagnosis: A. fib chronic anemia chronic chronic thrombocyto penia Daily alcohol use Time Spent with Patient Time attestation: Total time spent providing and/or coordinating discharge serv ices: Time spent: Greater than 30 minutes EXAM Constitutional Vitals: Temp Pulse Resp BP Pulse Ox 97.2 F 70 18 107/72 95 12/16/20 06:52 12/16/20 06:52 12/16/20 08:00 12/16/20 06:52 12/16/20 06:52 Discharge Data Data Completed and Pending Labs on day of discharge: Labs from last 24 hours 12/16/20 12/16/20 05:44 04:53 WBC 4.8 RBC 3.60 L Hgb 10.3 L Hct 31.3 L MCV 86.9 MCH 28.6 MCHC 32.9 RDW 14.2 Plt Count 113 L MPV 11.9 H Neut % (Auto) 79.9 H Lymph % (Auto) 11.1 L Glasscock % (Auto) 8.8 Eos % (Auto) 0 Baso % (Auto) 0.2 Lymph # (Auto) 0.53 L Glasscock # (Auto) 0.42 Eos # (Auto) 0 Baso # (Auto) 0.01 Absolute Neutrophils 3.80 Sodium 133 Potassium 4.6 Chloride 98 Carbon Dioxide 25 Anion Gap 10.0 BUN 11 Creatinine 0.6 GFR Calculation 88 Glucose 142 H Uric Acid 5.1 Calcium 7.7 L Phosphorus 2.9 Magnesium 2.3 Total Bilirubin 0.6 Direct Bilirubin 0.2 GGT 81 H AST 21 ALT 20 Alkaline Phosphatase 93 Lactate Dehydrogenase 284 H Total Protein 5.5 L Albumin 3.1 L Globulin 2.4 Albumin/Globulin Ratio 1.3 Triglycerides 48 Preliminary micro results at discharge 12/14/20 21:58 Urine Culture - Preliminary Urine - Catheterized Gram negative bacillus Discharge Plan Patient/Caregiver Discharge Instructions Activity: ambulate only with your walker and increase activity as tolerated Diet: Regular Diet Activity Restrictions/Additional Instructions: -toe touch weight bearing-use a walker or crutches as needed -the silver dressing on yourhip is ok to get wet. Ok to shower with it in place. Do not remove until your follow up appointment. If the edges wrinkle and water gets under the dressing, remove the dressing and replace with dry gauze (stop getting the incision wet if this happens). -Start physical therapy, until then work on walking every 1-2 hours throughout the day -Ice your hip for 20 minutes every 3-4 hours throughout the day -Aspirin was changed to 81mg twice a day for 30 days to help prevent blood clots -Hydrocone is the narcotic pain medication which to be taken as needed. Meaning only take it if the other pain medications are not sufficient in controlling your pain. -The muscle relaxer will help with pain as well. Prescriptions: New docusate sodium [DOK] 100 mg Capsule 100 mg PO BID Qty: 60 RF: 0 methocarbamol 750 mg Tablet 750 mg PO Q6HP PRN (Reason: pain/spasm) Qty: 20 RF: 0 hydrocodone-acetaminophen 7.5-325 mg Tablet 1 - 2 tab PO Q4-6HP PRN (Reason: Per Pain Protocol) Qty: 60 RF: 0 levofloxacin 750 mg tablet 750 mg PO Q24H Qty: 2 RF: 0 Continued calcium carbonate-vitamin D3 1 tab PO DAILY RF: 0 diltiazem HCl 240 mg capsule,extended release 24hr 240 mg PO DAILY RF: 0 Eliquis 5 mg tablet 5 mg PO BID RF: 0 atorvastatin 20 mg tablet 20 mg PO QHS RF: 0 alendronate 70 mg tablet 70 mg PO WEEKLY RF: 0 metoprolol tartrate 50 mg tablet 50 mg PO BID RF: 0 Other Ambulatory Orders: Physical Therapy at Discharge - General (Routine) Location: None Selected Ordered By: Monica Turner Follow Up Plan Follow up with: Ken Salinas MD [Physician] - Luis Eduardo Sahni DO [Primary Care Provider] - Patient Disposition: Home Health Service Prognosis: Fair Overall status at discharge: patient is progressing back to baseline Discharge Orders: Discharge Order (Routine); Ordered 12/17/20 Ordered By: Saurabh EDWARD VTE Deep Vein Thrombosis/Pulmonary Embolism Present on Admission: No
--- NOTE | 2020-12-16 11:54 | Operative Note ---
DATE OF OPERATION: 12/15/2020 POSTOPERATIVE DIAGNOSIS: Left intertrochanteric hip fracture. POSTOPERATIVE DIAGNOSIS: Left intertrochanteric hip fracture. OPERATION PROPOSED: Reduction and internal fixation with an intramedullary device gamma kosta. OPERATION PERFORMED: Reduction and internal fixation with an intramedullary device gamma kosta. SURGEON: Ken Salinas M.D. LITHOPLATE MAKER: Sofia Concepcion PA-C. The PA's assistance was required for the safe and efficient completion of the entire case. This provider's expertise and technical skill were required throughout the case. The PA assisted with preoperative coordination, intraoperative retraction, wound closure, dressing and splint application, as well as postoperative documentation and care coordination. INDICATIONS: This is an elderly lady with an intertrochanteric hip fracture in need of operative stabilization. DESCRIPTION OF PROCEDURE: Informed consent was obtained. She was taken to the operating room where she was provided with appropriate anesthetic and prophylactic antibiotics. She was carefully positioned. Her hip was prepped sterilely. A 3 cm incision was made proximal to the tip of the greater trochanter and advanced through the gluteal fascia, spread through the muscle arriving on the tip of the greater trochanter. A 3.2 mm guidewire was advanced into the tip of the trochanter. I confirmed the position on both the AP and lateral projections. I entered with an entry reamer. This was followed by an intramedullary device. A guidewire was placed retrograde across the fracture and a hip bolt placed and interlocking screw placed. Wounds were irrigated thoroughly and closed. Procedure was tolerated well. No complications. The estimated blood loss was 75 mL. GDD:[email or web address] Job ID: [id number] Doc ID: [id number] Ken Salinas MD
[2020-12-16] MEDS: ATORVASTATIN 20 MG TABLET PO SCH (22:02)
[2020-12-16] MEDS: APIXABAN 5 MG TABLET PO SCH (22:02)
[2020-12-17] MEDS: HYDROCODONE/APAP 7.5/325MG TABLET PO PRN ×2 (00:27→07:58)
[2020-12-17] MEDS: ceFAZolin 1 GM VIAL IV SCH (05:30)
[2020-12-17] MEDS: 0.9 % SODIUM CHLORIDE 10 ML SYRINGE IV SCH ×2 (05:31)
--- NOTE | 2020-12-17 06:55 | Orthopedic Progress Note ---
SUBJECTIVE Subjective Patient information: Note initiated : 12/17/20 at 6:52 am Service Date, if different from initiated Date: [] Patient: Uday Caballero 75 y/o F admitted on 12/14/20 for Fell @ home & broke right hip. Chief Complaint: [No complaints overnight. Pain controlled.] Constitutional Vitals: Vital Signs Temp Pulse Resp BP Pulse Ox 98 F 66 18 109/65 96 12/17/20 04:01 12/17/20 04:01 12/17/20 06:30 12/17/20 04:01 12/17/20 04:01 Period Temp Pulse Resp BP Sys/Winters Pulse Ox Last 24 Hr 98 F-99.1 F 60-75 16-20 109-136/63-74 95-97 Intake and Output 12/16/20 12/17/20 12/17/20 21:59 05:59 13:59 Intake Total 354 200 Output Total 250 750 Balance 104 -550 Weight 127 lb 12.8 oz Intake & Output: Intake & Output 12/16/20 12/17/20 12/17/20 21:59 05:59 13:59 Intake Total 354 200 Output Total 250 750 Balance 104 -550 Weight 127 lb 12.8 oz Intake: Beer quantity 354 Oral 200 Output: Void Amount 250 750 Other: Meal Dinner Percent of Meal Consumed 50% Urine Appearance Clear Clear Urine Color Bright Yellow Additional findings Additional findings: General: alert oriented and appropriate left hip: dressing clean, dry and intact. foot warm well perfused OBJ DATA Labs CBC & Chem 7: 12/16/20 04:53 12/16/20 05:44 Labs: Abnormal Lab Results 12/16/20 12/16/20 12/15/20 05:44 04:53 05:30 RBC 3.60 L 3.78 L Hgb 10.3 L 10.8 L Hct 31.3 L 33.6 L Plt Count 113 L 123 L MPV 11.9 H 11.1 H Neut % (Auto) 79.9 H Lymph % (Auto) 11.1 L 13.2 L Lymph # (Auto) 0.53 L 0.73 L PT INR Carbon Dioxide Creatinine Glucose 142 H Calcium 7.7 L Phosphorus Total Bilirubin Direct Bilirubin GGT 81 H Lactate Dehydrogenase 284 H Total Protein 5.5 L Albumin 3.1 L Urine Ketones Urine RBC Urine Bacteria 12/15/20 12/15/20 12/14/20 05:29 05:29 21:58 RBC Hgb Hct Plt Count MPV Neut % (Auto) Lymph % (Auto) Lymph # (Auto) PT 16.4 H INR 1.3 H Carbon Dioxide 21 L Creatinine 0.5 L Glucose Calcium 8.2 L Phosphorus 2.1 L Total Bilirubin 1.2 H Direct Bilirubin 0.4 H GGT 98 H Lactate Dehydrogenase 304 H Total Protein Albumin Urine Ketones 20 A Urine RBC 6 H Urine Bacteria Many A Meds: Medications Acetaminophen (Acetaminophen 325 Mg Tablet) 650 mg PO Q6HP PRN PRN Reason: PAIN/FEVER > 101 Last Admin: 12/15/20 07:15 Dose: 650 mg Documented by: Hydrocodone Bitart/Acetaminophen (Hydrocodone/Apap 7.5/325mg Tablet) 1 - 2 tab PO Q4-6HP PRN; Protocol PRN Reason: Per Pain Protocol Last Admin: 12/17/20 00:27 Dose: 1 tab Documented by: Albuterol/Ipratropium (Ipratropium/Albuterol 3 Ml Ampul.Neb) 3 ml NEB Q4HP PRN PRN Reason: Shortness Of Breath Alendronate Sodium (Alendronate Sodium 70 Mg Tablet) 70 mg PO Weiner@0730 [facility] Apixaban (Apixaban 5 Mg Tablet) 5 mg PO BID [facility] Last Admin: 12/16/20 22:02 Dose: 5 mg Documented by: Atorvastatin Calcium (Atorvastatin 20 Mg Tablet) 20 mg PO QHS [facility] Last Admin: 12/16/20 22:02 Dose: 20 mg Documented by: Cefazolin Sodium (Cefazolin 1 Gm Vial) 1 gm IV Q8H [facility]; Protocol Last Admin: 12/17/20 05:30 Dose: 1 gm Documented by: Chlordiazepoxide HCl (Chlordiazepoxide 25 Mg Capsule) 25 mg PO Q4HP PRN PRN Reason: Alcohol Withdrawal Clonidine HCl (Clonidine Hcl 0.1 Mg Tablet) 0.1 mg PO Q4HP PRN PRN Reason: ALC Diltiazem HCl (Diltiazem 240 Mg Cap.Xl.24h) 240 mg PO DAILY [facility] Last Admin: 12/16/20 08:29 Dose: 240 mg Documented by: Docusate Sodium (Docusate Sodium 100 Mg Capsule) 100 mg PO BID [facility] Last Admin: 12/16/20 22:02 Dose: 100 mg Documented by: Folic Acid (Folic Acid 1 Mg Tablet) 1 mg PO DAILY [facility] Last Admin: 12/16/20 08:29 Dose: 1 mg Documented by: Potassium Chloride 40 meq/ (Dextrose) 520 mls @ 130 mls/hr IV UD PRN PRN Reason: Potassium < 3 Magnesium Sulfate (Magnesium Sulfate) 2 gm in 50 mls @ 50 mls/hr IV UD PRN PRN Reason: Magnesium </= 1.6 Thiamine HCl 100 mg/ Sodium (Chloride) 51 mls @ 50 mls/hr IV DAILY [facility] Last Infusion: 12/16/20 09:35 Dose: Infused Documented by: Labetalol HCl (Labetalol 5 Mg/Ml Ml) 0 mg IV Q2HP PRN PRN Reason: Hypertension Lorazepam (Lorazepam 2 Mg/Ml Vial) 0 mg IV Q4HP PRN; Protocol PRN Reason: Alcohol Withdrawal Methocarbamol (Methocarbamol 750 Mg Tablet) 750 mg PO Q6HP PRN PRN Reason: pain/spasm Last Admin: 12/16/20 01:21 Dose: 750 mg Documented by: Metoprolol Tartrate (Metoprolol Tartrate 50 Mg Tablet) 50 mg PO BID [facility] Last Admin: 12/16/20 22:02 Dose: 50 mg Documented by: Metoprolol Tartrate (Metoprolol Tartrate 5 Mg/5 Ml Vial) 5 mg IV Q2HP PRN PRN Reason: Tachyarrhythmias HR>110 Last Admin: 12/15/20 08:17 Dose: 5 mg Documented by: Morphine Sulfate (Morphine 4 Mg/Ml Vial) 0 mg IV Q3HP PRN PRN Reason: Pain Ondansetron HCl (Ondansetron 4 Mg/2 Ml Vial) 4 mg IV Q4HP PRN PRN Reason: Nausea And Vomiting Polyethylene Glycol (Polyethylene Glycol 3350 17 Gm Packet) 17 gm PO DAILYP PRN PRN Reason: Constipation Potassium Chloride (Potassium Chloride 20 Meq Tablet) 40 meq PO UD PRN PRN Reason: Potssium is 3-3.5 Potassium Chloride (Potassium Chloride 20 Meq Tablet) 40 meq PO UD PRN PRN Reason: Potassium < 3 Senna (Sennosides 1 Tablet) 2 tab PO DAILYP PRN PRN Reason: Constipation Last Admin: 12/16/20 22:02 Dose: 2 tab Documented by: Sodium Chloride (0.9 % Sodium Chloride 10 Ml Syringe) 10 ml IV Q8 [facility] Last Admin: 12/17/20 05:31 Dose: 10 ml Documented by: Sodium Chloride (0.9 % Sodium Chloride 10 Ml Syringe) 10 ml IV Q8 [facility] Last Admin: 12/17/20 05:31 Dose: Not Given Documented by: A/P Assessment and plan (1) Intertrochanteric fracture of left hip: Status: Acute Comment: POD 2 s/p short gamma for intertroch left femur fracture -- Toe touch weight bearing per Dr. Salinas -- PT/OT -- oral pain meds -- oral diet -- Prophy: home eliquis, IS, ambulation, foot pumps -- Dispo: ok to d/c from ortho standpoint- chart states [facility] bed but patient thinks she is going home. Change to silver dressing prior to d/c. Toe touch weight bearing (pt has walker already), will need therapy if going home. F/u with Dr. Salinas in 10-13 days. Time Spent With Patient Time: Total time spent is greater than 50% in coordination of care (as documented) at patient's floor/unit and/or counseling patient:
[2020-12-17] MEDS: METOPROLOL TARTRATE 50 MG TABLET PO SCH (07:58)
[2020-12-17] MEDS: DOCUSATE SODIUM 100 MG CAPSULE PO SCH (07:58)
[2020-12-17] MEDS: APIXABAN 5 MG TABLET PO SCH (07:58)
[2020-12-17] MEDS: FOLIC ACID 1 MG TABLET PO SCH (07:59)
[2020-12-17] MEDS: DILTIAZEM 240 MG CAP.XL.24H PO SCH (08:01)
[2020-12-17] MEDS ORDERED: cefTRIAXone 1 GM VIAL IV SCH (09:00)
[2020-12-17] MEDS: THIAMINE 100 MG in 0.9 % SODIUM CHLORIDE 50 ML IV SCH (09:11)
[2020-12-18] MEDS ORDERED: ALENDRONATE SODIUM 70 MG TABLET PO SCH (07:30)
== END 2020-12-17 11:27 | disposition home health service (06) | DRG 481 ==
LOC: ED 18:04 → MEDSUR 20:04 → ICU 12-15 20:00
PROVIDERS: ADMIT Internal Medicine; ATTEND Internal Medicine